=== PATIENT | female | born 1965 | race Caucasian/White ===

== ENCOUNTER → 2016-06-13 | Outpatient (CLI) | payer OTHER ==
--- NOTE | 2016-06-13 16:10 | DX ---
3 Views Right Foot: Reason for examination: Right foot pain in a 50-year-old female; no report of recent specific trauma. Findings: A fracture or other acute osseous abnormality is not identified. No periosteal reaction is seen to suggest a stress fracture. The bone alignment is normal. A small plantar calcaneal spur is no riya. Impression: 1. Negative for fracture. 2. Small plantar calcaneal spur is noted.
== END ==
LOC: BMCIMAGING 15:28
PROVIDERS: ATTEND Family Medicine
DX: M79.671 Pain in right foot (principal); M77.31 Calcaneal spur, right foot

== ENCOUNTER 2017-10-06 15:11 | Emergency (ER) | payer OTHER ==
--- NOTE | 2017-10-06 15:28 | CPEKG ---
Heart Rate: 66 RR Interval: 909 P-R Interval: 152 QRSD Interval: 74 QT Interval: 380 QTC Interval: 399 P [place]: 45 QRS [place]: 46 T Wave [place]: 47 EKG Severity - NORMAL ECG - EKG Impression: SINUS RHYTHM Electronically Signed By: Parris Oconnor 06-Oct-2017 21:33:27
[2017-10-06 15:36] LABS: PLATELET COUNT 232 10^3/uL (150-400)
--- NOTE | 2017-10-06 15:40 | EDPHY ---
H & P Stated Complaint: Heart palpitations on and off for over a year. Time Seen by Provider: 10/06/17 15:16 HPI/ROS: CHIEF COMPLAINT: Palpitations HISTORY OF PRESENT ILLNESS: 52-year-old female presents with palpitations. Intermittent palpitations over several years, but worsened recently. She was in an argument with her boyfriend few days ago and noticed a pounding fast heart rate that lasted for several hr. Today she has had intermittent palpitations. No associated symptoms. Aggravated by stress. REVIEW OF SYSTEMS: complete 10 point ROS negative except at noted in the HPI - Personal History LMP (Females 10-55): Post Menopausal Current Tetanus Diphtheria and Acellular Pertussis (TDAP): Yes - Medical/Surgical History Hx Asthma: No Hx Chronic Respiratory Disease: No Hx Diabetes: No Hx Cardiac Disease: No Hx Renal Disease: No Hx Cirrhosis: No Hx Alcoholism: No Hx HIV/AIDS: No Hx Splenectomy or Spleen Trauma: No Other PMH: Hypothyroid. - Social History Smoking Status: Never smoked - Physical Exam Exam: General Appearance: Alert, pleasant Eyes: Pupils equal and round, no conjunctival pallor ENT, Mouth: Mucous membranes moist Neck: Normal inspection Respiratory: Lungs are clear to auscultation Cardiovascular: Regular rate and rhythm, no murmur Gastrointestinal: Abdomen is soft and nontender Neurological: A&O, nonfocal, normal gait Skin: Warm and dry, no rash Extremities: Nontender, no pedal edema Psychiatric: Mood and affect normal Constitutional: Initial Vital Signs Temperature (C) 36.9 C 10/06/17 15:11 Heart Rate 84 10/06/17 15:11 Respiratory Rate 18 10/06/17 15:11 Blood Pressure 126/82 H 10/06/17 15:11 O2 Sat (%) 92 10/06/17 15:11 O2 Delivery Mode Room Air Allergies/Adverse Reactions: codeine Allergy (Verified 10/06/17 15:16) Home Medications: Medication Instructions Recorded Levothyroxine 10/06/17 Medical Decision Making - Diagnostics EKG Interpretation: EKG interpreted by me reveals normal sinus rhythm, rate 66, no ST or T segment changes. Interpretation: Normal EKG ED Course/Re-evaluation: This patient presents with intermittent palpitations. Stat EKG reveals normal sinus rhythm, without evidence of ischemia or dysrhythmia. stars coordinator reveals normal sinus rhythm throughout her emergency department stay. CBC and Chem 7 are unremarkable. Will follow up with the PCP for further evaluation. Differential Diagnosis: Includes though is not limited to ventricular dysrhythmia, SVT, atrial fibrillation, thyrotoxicosis, hypotension - Data Points Laboratory Results: Laboratory Results 10/06/17 15:28 10/06/17 15:28 Departure - Departure Disposition: Home, Routine, Self-Care Clinical Impression: Palpitations Condition: Good Instructions: Heart Palpitations (ED) Additional Instructions: Return for worsening symptoms or any concerns. Drink plenty of fluids. Your thyroid test results are pending. Call in 24 hours for TSH results. Referrals: Poornima Redding MD [Primary Care Provider] - 5-7 days, call for appt.
[2017-10-06 16:37] VITALS: BP 135/87
== END 2017-10-06 16:36 | disposition home or self-care (01) ==
DX: R00.2 Palpitations (principal)